=== PATIENT | male | born 1975 | race Caucasian/White ===

== ENCOUNTER 2025-02-25 14:43 | Outpatient (CLI) | payer BC, SELFPAY ==
--- OUTSIDE RECORDS SUMMARY | 2024-08-29 17:30 | XMS_ITS ---
Author Organization [facility] Address [address] [place] [address] Care Team Providers Care Central Office Repairer Name Role Phone AZAR SINGH Unavailable [phone] Migration, Provider Unavailable Unavailable REASON FOR VISIT Multum To Medispan Conversion Encounter Medications Medication SIG (Take, Route, Fr equency, Duration) Notes Start Date End Date Status Qnasl 80 MCG/ACT 2 spray(s) intranasa lly once a day; Duration: 30 day(s) 07/27/2014 Active Cozaar 50 MG 1 tab(s) orally once a day Active Encounters Encounter Location Date Provider Diagnosis [facility] [address] [place] [address] 08/29/2024 Provider Migration Chronic rhinitis 472.0 Assessments Encounter Date Diagnosis (ICD Code) Assessment Notes Treatment Notes Treatment Clinical Notes Section Notes 08/29/2024 Chronic rhinitis (ICD9-CM - 472.0) Plan Of Treatment Medication Medication Name Sig Start Date Stop Date Notes Qnasl 80 MCG/ACT 2 spray(s) intranasa lly once a day; Duration: 30 day(s) 07/27/2014 Progress Notes * TERESA GALEANADOB: [birth year] (49 yo M)Acc No.[id number]:08/29/2024 Patient: TERESA JONES Provider: Mahendra Rodriguez :1975 A ge:49 Y S ex:Male Date:08/29/2024 Address:[address] [place] [address] [facility] Subjective: * Chief Complaints: * 1 . Multum To Medispan Conversion Encounter. * Medical History: * Medications: T aking Cozaar 50 MG Tablet 1 tab(s) orally once a day Objective: * Vitals: Assessment: * Assessment: 1. C hronic rhinitis - 472.0 Plan: * Treatment: * Billing Information: * Visit Code: * Procedure Codes: * Electronic signature of Prov ider Migration on 02/25/2025 at 02:46 PM EDT Sign off status: Pending * Provider: Mahendra alba Migration Date: 08/29/2024 Generated for Bry choi/Lucila/Ale on: 0 02/25/2025 02:46 PM EDT
--- OUTSIDE RECORDS SUMMARY | 2025-02-25 14:46 | XMS_ITS | Encounter Summary ---
Author Organization [facility] Address [address] [place] [address] Care Team Providers Care Data Processing Specialist Name Role Phone Unavailable Primary Care Provider Unavailabl e Encounter Details Date Type Department Care Team (Late st Contact Info) Description 06/14/2006 Historical Encounter Global Arturo Heath MD [address] [place], [place] [id number] Social History Tobacco Use Types Packs/Day Years Used Date Smoking Tobacco: Never Assessed Sex and Gender Information Value Date Recorded Sex Assigned at Not on file Legal Sex Male 10:18 PM EST Gender Identity Not on file Sexual Orientation Not on file documented as of this encounter Plan of Treatment Not on file documented as of this encounter Visit Diagnoses Not on filedocumented in this encounter
--- OUTSIDE RECORDS SUMMARY | 2025-02-25 14:46 | XMS_ITS | Encounter Summary ---
Author Organization [facility] Address [address] [place] [address] Care Team Providers Care Construction Operations Manager Name Role Phone Unavailable Primary Care Provider Unavailabl e Encounter Details Date Type Department Care Team (Late st Contact Info) Description 09/28/2006 Historical Encounter Global Arturo Heath MD [address] [place], [place] [id number] Social History Tobacco Use Types Packs/Day Years [...]
--- OUTSIDE RECORDS SUMMARY | 2025-02-25 14:46 | XMS_ITS | Patient Health Record ---
Author Organization [facility] Address [address] [place] [address] Care Team Providers Care Plug Drill Operator Name Role Phone AZAR SINGH Unavailable [phone] Migration, Provider Unavailable Unavailable Reason For Referral No Information Medications Medication SIG (Take, Route, Fr equency, Duration) Notes Start Date End Date Status Qnasl 80 MCG/ACT 2 spray(s) intranasa lly once a day; Duration: 30 day(s) 07/27/2014 Active Cozaar 50 MG 1 tab(s) orally once a day Active Problems Problem Type SNOMED Code ICD Code Onset Dates Problem Status W/U Status Risk Notes Problem Cerumen (84606622) Cerumen (380.4) Active confirmed Problem Hearing loss (64855168) Hearing loss NOS (389.9) Active confirmed Problem Chronic rhinitis (61300447) Chronic rhinitis (472.0) Active confirmed Problem Foreign body in ear (16833894) Foreign body in ear (931) Active confirmed Problem Hypertrophy of nasal turbinates (72911565) HYPERTRPH NASAL TURBINAT (478.0) Active confirmed Problem Deviated nasal septum (519567685) septal deviation (470) Active confirmed Encounters Encounter Location Date Provider Diagnosis [facility] [address] [place] [address] 08/29/2024 Provider Migration Chronic rhinitis 472.0 Assessments Encounter Date Diagnosis (ICD Code) Assessment Notes Treatment Notes Treatment Clinical Notes Section Notes 08/29/2024 Chronic rhinitis (ICD9-CM - 472.0) Plan Of Treatment No Information Insurance Providers Payer Name Payer Address Payer Phone Subscriber Number Group Number Insured Name Patient Relationship to Insured Coverage Start Date Coverage End Date [employer] [address] [address] [place] [address] [id number] [facility] Self - patient is the insured Medical (General) History Medical History History ICD Code HEARING LOSS EAR PRESSURE NASAL CONGESTION NASAL DRAINAEG SEASONAL ALLERGIES HYPERTENSION Surgical History Surgery Date(Month/Year) GASTRIC BYPASS 2009
--- OUTSIDE RECORDS SUMMARY | 2025-02-25 14:46 | XMS_ITS | Clinical Summary ---
Author Organization [facility] Address [address] [place] [address] Care Team Providers Care Senior Java Software Developer Name Role Phone Unavailable Primary Care Provider Unavailabl e Allergies No known active allergies Medications clonazePAM (KLONOPIN) 0.5 mg tablet TAKE ONE TABLET BY MOUTH TWICE DAILY NEEDED MAY CAUSE DROWSINESS 0 Active fluticasone propionate (FLONASE) 50 mcg/Actuation nasal spray 0 Active Hydrochlorothia zide (MICROZIDE) 12.5 mg capsule 0 Active HYDROcodone-vashti taminophen (NORCO) 10-325 mg per tablet TAKE ONE TABLET BY MOUTH EVERY 6 HOURS NEEDED MAY CAUSE DROWSINESS 0 Active levocetirizine (XYZAL) 5 mg tablet 0 Active losartan-hydroc hlorothiazide (HYZAAR) 50-12.5 mg tablet 0 Active metFORMIN (GLUCOPHAGE-XR) 500 mg XR tablet 0 Active JANUVIA 100 mg tablet 0 Active Active Problems No known active problems Social History Tobacco Use Types Packs/Day Years Used Date Smoking Tobacco: Never Smokeless Tobacco: Never Sex and Gender Information Value Date Recorded Sex Assigned at Not on file Legal Sex Male 10:18 PM EST Gender Identity Not on file Sexual Orientation Not on file Last Filed Vital Signs Vital Sign Reading Time Taken Comments Blood Pressure 134/79 03/24/2020 9:22 PM EDT Pulse 69 03/24/2020 9:22 PM EDT Temperature 36.8 C (98.2 F) 03/24/2020 9:22 PM EDT Respiratory Rate 14 03/24/2020 9:22 PM EDT Oxygen Saturation 99% 03/24/2020 9:22 PM EDT Inhaled Oxygen Concentration - - Weight 124.7 kg (275 lb) 03/24/2020 9:22 PM EDT Height 185.4 cm (6' 1 ) 03/24/2020 9:22 PM EDT Body Mass Index 36.28 03/24/2020 9:22 PM EDT Plan of Treatment Health Maintenance Due Date Last Done Comments COLOGUARD 1975 COLONOSCOPY 1975 Colorectal Screening Combination 1974 FIT 1974 HEP C SCREENING 1974 SIGMOIDOSCOPY 1974 ANNUAL WELLNESS EXAM 1977 DTAP/TDAP/TD VACCINE (1 - Tdap) 1993 Shingles Vaccine (Shingrix) (1 of 2) 2024 INFLUENZA VACCINE (#1) 2025 HEP A VACCINE Aged Out No longer elig ible based on patient's age to complete this topic HIB VACCINE Aged Out No longer eligi ble based on patient's age to complete this topic ROTOVIRUS VACCINE Aged Out No longer eligible based on patient's age to complete this topic Insurance [facility]
--- OUTSIDE RECORDS SUMMARY | 2025-02-25 14:46 | XMS_ITS | Encounter Summary ---
Author Organization [facility] Address [address] [place] [address] Care Team Providers Care Inspector Printed Circuit Boards Name Role Phone Unavailable Primary Care Provider Unavailabl e Encounter Details Date Type Department Care Team (Late st Contact Info) Description 03/04/2006 Historical Encounter Global Arturo Heath MD [address] [place], [place] [id number] Social History Tobacco Use Types Packs/Day Years [...]
--- OUTSIDE RECORDS SUMMARY | 2025-02-25 14:46 | XMS_ITS | Encounter Summary ---
Author Organization [facility] Address [address] [place] [address] Care Team Providers Care Coffee Plantation Worker Name Role Phone Unavailable Primary Care Provider Unavailabl e Encounter Details Date Type Department Care Team (Late st Contact Info) Description 12/24/2006 Historical Encounter Global Arturo Heath MD [address] [place], [place] [phone] Social History Tobacco Use Types Packs/Day Years [...]
--- OUTSIDE RECORDS SUMMARY | 2025-02-25 14:46 | XMS_ITS | Encounter Summary ---
Author Organization [facility] Address [address] [place] [address] Care Team Providers Care Screen Printer Helper Name Role Phone Unavailable Primary Care Provider Unavailabl e Encounter Details Date Type Department Care Team (Late st Contact Info) Description 12/26/2006 Historical Encounter Global Arturo Heath MD [address] [place], [place] [phone] Social History Tobacco Use Types Packs/Day Years [...]
--- OUTSIDE RECORDS SUMMARY | 2025-02-25 14:46 | XMS_ITS | Encounter Summary ---
Author Organization [facility] Address [address] [place] [address] Care Team Providers Care Inspector Aligning Name Role Phone Unavailable Primary Care Provider Unavailabl e Encounter Details Date Type Department Care Team (Late st Contact Info) Description 10/29/2006 Historical Encounter Global Arturo Heath MD [address] [place], [place] [address] Social History Tobacco Use Types Packs/Day Years [...]
--- OUTSIDE RECORDS SUMMARY | 2025-02-25 14:46 | XMS_ITS | Encounter Summary ---
Author Organization [facility] Address [address] [place] [address] Care Team Providers Care Production Manager Name Role Phone Unavailable Primary Care Provider Unavailabl e Encounter Details Date Type Department Care Team (Late st Contact Info) Description 05/03/2006 Historical Encounter Global Arturo Heath MD [address] [place], [place] [phone] Social History Tobacco Use Types Packs/Day Years [...]
--- NOTE | 2025-02-25 14:47 | XR_ITS ---
FINAL REPORT CLINICAL HISTORY: PAIN LT ARM COMPARISON: None FINDINGS: AP, oblique, and lateral views of the left elbow were obtained. There is no prior exam for comparison. There is no acute fracture or dislocation. Joint space is preserved. There is no joint effusion or other soft tissue abnormality. IMPRESSION: No acute osseous abnormality of the left elbow. Reviewed, Interpreted and Dictated by Beatriz Quiñones MD Transcribed by Sybil Huber Authenticated and [facility]
--- OUTSIDE RECORDS SUMMARY | 2025-02-25 14:47 | XMS_ITS | Encounter Summary ---
Author Organization [facility] Address [address] [place] [address] Care Team Providers Care Financial Management Consultant Name Role Phone Unavailable Primary Care Provider Unavailabl e Encounter Details Date Type Department Care Team (Late st Contact Info) Description 04/05/2006 Historical Encounter Global Arturo Heath MD [address] [place], [place] [phone] Social History Tobacco Use Types Packs/Day Years [...]
--- OUTSIDE RECORDS SUMMARY | 2025-02-25 14:47 | XMS_ITS | Encounter Summary ---
Author Organization [facility] Address [address] [place] [address] Care Team Providers Care Medical Office Technologist Name Role Phone Unavailable Primary Care Provider Unavailabl e Encounter Details Date Type Department Care Team (Late st Contact Info) Description 01/01/2007 Historical Encounter Global Arturo Heath MD [address] [place], [place] [phone] Social History Tobacco Use Types Packs/Day Years [...]
--- OUTSIDE RECORDS SUMMARY | 2025-02-25 14:47 | XMS_ITS | Encounter Summary ---
Author Organization [facility] Address [address] [place] [address] Care Team Providers Care Coil Cutter Name Role Phone Unavailable Primary Care Provider Unavailabl e Encounter Details Date Type Department Care Team (Late st Contact Info) Description 04/06/2006 Historical Encounter Global Arturo Heath MD [address] [place], [place] [address] Social History Tobacco Use Types Packs/Day Years [...]
--- NOTE | 2025-02-25 14:50 | XR_ITS ---
FINAL REPORT TECHNIQUE: 3 views left humerus CLINICAL HISTORY: PAIN LT ARM COMPARISON: None FINDINGS: LEFT HUMERUS: 3 images of the left humerus were obtained. There is no evidence of fracture or dislocation. The joint spaces are intact. There is no soft tissue abnormality identified. IMPRESSION: No acute bony abnormality. Reviewed, Interpreted and Dictated by Beatriz Quiñones MD Transcribed by Sybil Huber Authenticated and . [facility]
== END 2025-02-25 23:59 | disposition home or self-care (01) ==
LOC: RAD 14:44
PROVIDERS: PCP Nurse Practitioner Family; Visit Provider Nurse Practitioner Family
DX: M79.602 Pain in left arm (principal)
CPT/HCPCS: 73060; 73080